=== PATIENT | female | born 1995 | race Caucasian/White ===

== ENCOUNTER 2018-01-09 11:28 | Emergency (ER) | payer SELFPAY ==
[~2018-01-09] VITALS: Ht 157.5 cm; Wt 42.0 kg
[2018-01-09 11:54] VITALS: BP 142/92; PULSE 118; RESP 17; TEMP 97.9; O2SAT 99
[2018-01-09] MEDS ORDERED: SODIUM CHLORIDE 0.9% FLUSH 10 ML FLUSH IVF PRN (12:45)
[2018-01-09] MEDS ORDERED: ONDANSETRON ODT 4 MG TAB PO/SL ONE (12:45)
[2018-01-09] MEDS ORDERED: SODIUM CHLOR 0.9% 1000 ML INJ 1,000 ML IV ONE (12:45)
[2018-01-09 12:51] VITALS: BP 122/81; PULSE 91; RESP 17; O2SAT 99
[2018-01-09 12:52] VITALS: BP 122/81; PULSE 87; RESP 17; O2SAT 100
[2018-01-09 12:52] LABS: AUTOMATED NEUTROPHIL # 4.9 TH/MM3 (1.8-7.7); BASOPHIL % 0.2 % (0.0-2.0); EOSINOPHIL % 0.5 % (0.0-4.0); HEMOGLOBIN 15.2 GM/DL (11.6-15.3); MEAN CELL VOLUME 86.6 FL (80.0-100.0); MEAN CORPUSCULAR HEMOGLOBIN 29.3 PG (27.0-34.0); MEAN CORPUSCULAR HGB CONC 33.9 % (32.0-36.0); MEAN PLATELET VOLUME 8.8 FL (7.0-11.0); MONO % 8.4 % (0.0-8.0); MONOCYTE # 0.5 TH/MM3 (0-0.9); NEUT % 75.9 % (16.0-70.0); PLATELET COUNT 224 TH/MM3 (150-450); RED BLOOD COUNT 5.19 MIL/MM3 (4.00-5.30); RED CELL DISTRIBUTION WIDTH 13.3 % (11.6-17.2); WHITE BLOOD COUNT 6.4 TH/MM3 (4.0-11.0)
[2018-01-09] MEDS ORDERED: LEVO13.5 I-UTERINE (12:54)
--- NOTE | 2018-01-09 13:01 | PD ---
HPI Chief Complaint: Syncope/Near-Syncope Time Seen by Provider: 12:30 Travel History International Travel<30 days: No Contact w/Intl Traveler<30days: No Traveled to known affect area: No History of Present Illness HPI 22 y/o female presents with near syncopal feeling and just feeling off. She states she also intermittently gets fast heart rate. She went to an urgent care and was sent here. She denies any other concurrent complaints. She states she has not had a menstrual cycle in the year since having an IUD. Quality is dizzy. Severity is intermittent. She denies any specific pain or shortness of breath. She states it feels worse with movement. She denies other modifying factors. PFS Past Medical History Medical History: Denies Significant Hx Tetanus Vaccination: < 5 Years Influenza Vaccination: No ?: Not Past Surgical History Surgical History: No Previous Surgery Family History Narrative Family History No family history of sudden , early heart disease or clots Social History Alcohol Use: No Tobacco Use: No Substance Use: No Allergies-Medications (Allergen,Severity, Reaction): Coded Allergies: No Allergy Information Available (Unverified , 01/09/18) Reported Meds & Prescriptions Reported Meds & Active Scripts Active Reported Ksenia (Levonorgestrel (Iud)) 14 Mcg/24 Hour (3 Years) Iud 13.5 Mg I-UTERINE ONCE Review of Systems Except as stated in HPI: all other systems reviewed are Neg Physical Exam Narrative GENERAL: 22-year-old female in no apparent distress SKIN: Focused skin assessment warm/dry. HEAD: Atraumatic. Normocephalic. EYES: Pupils equal and round. No scleral icterus. No injection or drainage. ENT: No nasal bleeding or discharge. Mucous membranes pink and moist. NECK: Trachea midline. CARDIOVASCULAR: Regular rate and rhythm. No murmur appreciated. RESPIRATORY: No accessory muscle use. Clear to auscultation. Breath sounds equal bilaterally. GASTROINTESTINAL: Abdomen soft, non-tender, nondistended. MUSCULOSKELETAL: No obvious deformities. No clubbing. No cyanosis. No edema. NEUROLOGICAL: Awake and alert. No obvious cranial nerve deficits. Motor grossly within normal limits. Normal speech. PSYCHIATRIC: Appropriate mood and affect; insight and judgment normal. Data Data Last Documented VS Vital Signs Date Time Temp Pulse Resp B/P (MAP) Pulse Ox O2 Delivery O2 Flow Rate FiO2 01/09/18 14:16 75 18 109/57 (74) 100 01/09/18 12:52 Room Air 01/09/18 11:54 97.9 Orders Orders Complete Blood Count With Diff (01/09/18 11:58) Comprehensive Metabolic Panel (01/09/18 11:58) Urinalysis - C+S If Indicated (01/09/18 11:58) Ed Urine Pregnancytest Poc (01/09/18 11:58) Thyroid Stimulating Hormone (01/09/18 11:58) Electrocardiogram (01/09/18 ) Ecg Monitoring (01/09/18 12:43) Iv Access Insert/Monitor (01/09/18 12:43) Oximetry (01/09/18 12:43) Ondansetron Odt (Zofran Odt) (01/09/18 12:45) Sodium Chloride 0.9% Flush (Ns Flush) (01/09/18 12:45) Sodium Chlor 0.9% 1000 Ml Inj (Ns 1000 M (01/09/18 12:45) D-Dimer (01/09/18 12:52) Chest, Pa & Lat (01/09/18 12:52) Thyroid Stimulating Hormone (01/09/18 12:52) Ed Discharge Order (01/09/18 14:08) Labs Laboratory Tests Test 01/09/18 12:15 01/09/18 13:04 White Blood Count 6.4 TH/MM3 Red Blood Count 5.19 MIL/MM3 Hemoglobin 15.2 GM/DL Hematocrit 45.0 % Mean Corpuscular Volume 86.6 FL Mean Corpuscular Hemoglobin 29.3 PG Mean Corpuscular Hemoglobin Concent 33.9 % Red Cell Distribution Width 13.3 % Platelet Count 224 TH/MM3 Mean Platelet Volume 8.8 FL Neutrophils (%) (Auto) 75.9 % Lymphocytes (%) (Auto) 15.0 % Monocytes (%) (Auto) 8.4 % Eosinophils (%) (Auto) 0.5 % Basophils (%) (Auto) 0.2 % Neutrophils # (Auto) 4.9 TH/MM3 Lymphocytes # (Auto) 1.0 TH/MM3 Monocytes # (Auto) 0.5 TH/MM3 Eosinophils # (Auto) 0.0 TH/MM3 Basophils # (Auto) 0.0 TH/MM3 CBC Comment DIFF FINAL Differential Comment Urine Color YELLOW Urine Turbidity HAZY Urine pH 5.0 Urine Specific [place] 1.023 Urine Protein NEG mg/dL Urine Glucose (UA) NEG mg/dL Urine Ketones TRACE mg/dL Urine Occult Blood NEG Urine Nitrite NEG Urine Bilirubin NEGATIVE Urine Urobilinogen GREATER/EQUAL 4.0 MG/DL Urine Leukocyte Esterase NEGATIVE Urine RBC LESS THAN 1 /hpf Urine WBC 1 /hpf Urine Squamous Epithelial Cells <1 /hpf Urine Mucus FEW /lpf Microscopic Urinalysis Comment CULT NOT INDICATED Blood Urea Nitrogen 10 MG/DL Creatinine 0.76 MG/DL Random Glucose 103 MG/DL Total Protein 7.4 GM/DL Albumin 3.9 GM/DL Calcium Level 8.6 MG/DL Alkaline Phosphatase 63 U/L Aspartate Amino Transf (AST/SGOT) 13 U/L Alanine Aminotransferase (ALT/SGPT) 16 U/L Total Bilirubin 1.0 MG/DL Sodium Level 138 MEQ/L Potassium Level 3.3 MEQ/L Chloride Level 103 MEQ/L Carbon Dioxide Level 26.4 MEQ/L Anion Gap 9 MEQ/L Estimat Glomerular Filtration Rate 97 ML/MIN Thyroid Stimulating Hormone 3rd Gen 0.910 uIU/ML 0.890 uIU/ML D-Dimer Quantitative (PE/DVT) LESS THAN 0.19 MG/L FEU [facility] Medical Decision Making Medical Screen Exam Complete: Yes Emergency Medical Condition: Yes Medical Record Reviewed: Yes (Past history confirmed) Interpretation(s) CBC & BMP Diagram 01/09/18 12:15 Total Protein 7.4, Albumin 3.9, Calcium Level 8.6, Alkaline Phosphatase 63, Aspartate Amino Transf (AST/SGOT) 13 L, Alanine Aminotransferase (ALT/SGPT) 16, Total Bilirubin 1.0 Last 24 hours Impressions Chest X-Ray 01/09/18 1252 Signed Impressions: CONCLUSION: No acute disease Differential Diagnosis Anemia, renal failure, PE, Narrative Course We will check blood work, imaging and reevaluate ED workup no acute, heart rate normal here, Patient denies any new complaints and states that they are feeling better. Patient happy with care, all questions answered. Patient knows that follow up is incumbent on them and to return to the emergency room immediately if new or worsening symptoms develop. Patient given strict return precautions, vitals reviewed and are normal, agrees to further workup as an outpatient. Diagnosis Primary Impression: Near syncope Patient Instructions: General Instructions Additional Instructions: return as needed, follow with primary tommorrow, keep hydrated Med/Other Pt SpecificInfo: No Change to Meds Disposition: 01 DISCHARGE HOME Condition: Stable Helena Mccauley MD January 09, 2018 13:01
[2018-01-09 13:13] LABS: ALBUMIN 3.9 GM/DL (3.4-5.0); ALT (GPT) 16 U/L (9-42); AST (GOT) 13 U/L (16-38); BICARBONATE 26.4 MEQ/L (21.0-32.0); BLOOD UREA NITROGEN 10 MG/DL (7-18); CALCIUM 8.6 MG/DL (8.5-10.1); CHLORIDE 103 MEQ/L (98-107); CREATININE 0.76 MG/DL (0.50-1.00); GLOMERULAR FILTRATION RATE 97 ML/MIN (>89); GLUCOSE,RANDOM 103 MG/DL (74-106); SODIUM (NA) 138 MEQ/L (136-145)
[2018-01-09 13:21] LABS: ALKALINE PHOSPHATASE 63 U/L (45-117); TOTAL PROTEIN 7.4 GM/DL (6.4-8.2)
[2018-01-09 13:37] LABS: URINE COLOR YELLOW (YELLW/STRAW)
[2018-01-09 13:38] LABS: BILIRUBIN, URINE NEGATIVE (NEG); BLOOD, URINE NEG (NEG); GLUCOSE,URINE NEG (NEG); KETONE, URINE TRACE mg/dL (NEG); NITRITE,URINE NEG (NEG); URINE LEUKOCYTE ESTERASE NEGATIVE (NEG)
[2018-01-09 13:39] LABS: MUCUS URINE FEW /lpf (OCC); SQUAMOUS EPITHELIAL CELL URINE <1 /hpf (0-5)
--- NOTE | 2018-01-09 13:43 | RADRPT ---
EXAM DATE: 01/09/2018 1:31 PM EDT AGE/SEX: 22 years / Female INDICATIONS: Vertigo, tachycardia for one week CLINICAL DATA: This is the patient's initial encounter. Patient reports that signs and symptoms have been present for 1 week and indicates a pain score of 0/10. MEDICAL/SURGICAL HISTORY: None. None. COMPARISON: No prior [facility] exams available for comparison. FINDINGS: PA and lateral views of the chest demonstrate the lungs to be symmetrically aerated withou t evidence of mass, infiltrate or effusion. The cardiomediastinal contours are unremarkable. Osseous structures are intact. CONCLUSION: No acute disease Electronically signed by: Enzo Cheung MD 01/09/2018 1:41 PM EDT
--- NOTE | 2018-01-09 14:02 | EKG ---
Date Performed: 01/09/2018 Time Performed: 12:17:40 PTAGE: 22 years EKG: Sinus rhythm Nonspecific ST changes BORDERLINE ECG NO PREVIOUS TRACING DOCTOR: Rishi Chung Interpretating Date/Time 01/09/2018 14:01:37
[2018-01-09 14:16] VITALS: BP 109/57
== END 2018-01-09 14:18 | disposition home or self-care (01) ==
LOC: NEPC 11:28
DX: R55 Syncope and collapse (principal); R42 Dizziness and giddiness; R00.0 Tachycardia, unspecified
CPT/HCPCS: 71046; 80053; 81001; 84443; 84703; 85025; 85379; 93005; 99285; J7030